=== PATIENT | female | born 1990 | race African-American/Black ===

== ENCOUNTER 2020-04-28 13:44 | Emergency (ER) | payer MEDICAID ==
[~2020-04-28] VITALS: Ht 165.1 cm; Wt 63.5 kg
[2020-04-28 14:01] VITALS: BP 105/76
== END 2020-04-28 15:20 | disposition home or self-care (01) ==
LOC: ER 13:44
DX: D17.21 Benign lipomatous neoplasm of skin and subcutaneous tissue of right arm (principal)